=== PATIENT | male | born 1965 | race Caucasian/White ===

== ENCOUNTER 2023-07-07 15:47 | Emergency (ER) | payer MEDICARE, OTHER ==
[~2023-07-07] VITALS: Ht 177.8 cm; Wt 100.0 kg
[2023-07-07] MEDS ORDERED: METHADONE HCL40 MG PO (15:59)
[2023-07-07] MEDS ORDERED: ALBUTEROL/IPRATROPIUM 3 ML NEB INH ONE (16:00)
[2023-07-07] MEDS ORDERED: FAMOTIDINE 20 MG/ 2 ML VIAL IV ONE (16:00)
[2023-07-07] MEDS ORDERED: SODIUM CHLORIDE 0.9% 1,000 ML IV PRN (16:00)
[2023-07-07] MEDS ORDERED: diphenhydrAMINE HCL 50 MG/ML VIAL IV ONE (16:00)
[2023-07-07] MEDS ORDERED: DEXAMETHASONE SOD PHOS 10 MG/ML VIAL IV ONE (16:00)
[2023-07-07 16:01] LABS: BASOPHILS 0.9 % (0-2); EOSINOPHILS 3.1 % (0-6); HEMATOCRIT 42.3 % (35.0-50.0); LYMPHOCYTES 32.2 % (24-44); MCH 29.8 (27-36); MCHC 33.2 g/dl (30-36); MCV 89.7 fl (81-99); MONOCYTES 9.1 % (0-12); NEUTROPHILS 54.7 % (39-80); PLATELET COUNT 152 K/uL (140-440); RBC 4.71 M/ul (4.3-5.7); RDW 13.6 (10.5-15.0)
[2023-07-07] MEDS ORDERED: NALOXONE HCL 0.4 MG SYR IV ONE (16:15)
[2023-07-07 16:23] LABS: ALBUMIN 3.7 g/dL (3.4-5.0); ALBUMIN/GLOBULIN RATIO 1.12 (1.1-2.4); ANION GAP 5.9 (7-21); BILIRUBIN, TOTAL 0.3 ng/dL (0.2-1.0); BUN/CREATININE RATIO 13.18 (6.0-28.6); CALCIUM 8.4 mg/dL (8.5-10.1); CREATININE, SERUM 0.91 mg/dL (0.70-1.30); POTASSIUM 3.9 mmol/L (3.5-5.1)
[2023-07-07 17:00] LABS: BILIRUBIN, URINE NEGATIVE (negative); BLOOD/HGB, URINE NEGATIVE (Negative); KETONE, URINE NEGATIVE (Negative); LEUK ESTERASE, URINE NEGATIVE (negative); NITRITE, URINE NEGATIVE (negative)
[2023-07-07 17:09] LABS: BACTERIA, URINE NONE SEEN /hpf (negative); CASTS, URINE NONE SEEN \\lpf; COLLECTION TYPE, URINE CLEAN CATCH; CRYSTALS, URINE NONE SEEN (0-1+); EPITHELIAL CELLS, URINE SQUAMOUS 1+ /lpf (0-1+); RED BLOOD CELLS, URINE 0-1 /hpf (0-5); REFLEX CULTURE, URINE No (No); WHITE BLOOD CELLS, URINE 0-1 /HPF (0-5)
[2023-07-07 17:22] LABS: AMPHETAMINES, URINE NEGATIVE (NEGATIVE); BARBITURATES, URINE NEGATIVE (NEGATIVE); BENZODIAZEPINE, URINE NEGATIVE (NEGATIVE); BUPRENORPHINE, URINE NEGATIVE (NEGATIVE); CANNABINOID, URINE POSITIVE (NEGATIVE); COCAINE, URINE NEGATIVE (NEGATIVE); ECSTASY, URINE NEGATIVE (NEGATIVE); FENTANYL, URINE NEGATIVE (NEGATIVE); METHADONE, URINE POSITIVE (NEGATIVE); OXYCODONE, URINE NEGATIVE (NEGATIVE); PHENCYCLIDINE, URINE NEGATIVE (NEGATIVE)
--- OUTSIDE RECORDS SUMMARY | 2023-07-07 17:33 | XMS ---
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 Rick VISIT COUNT (12 MO.) 7 [facility] 6 [facility] 1 ALEISHA Brian TOTAL 14 NOTE: Visits indicate total known visits. ED/UCC VISIT TRACKING (12 MO.) 07/07/2023 15:47 [facility] [place] TYPE: Emergency COMPLAINT: - SHORTNESS OF BREATH 06/15/2023 14:03 [facility] [place] TYPE: Emergency COMPLAINT: - DIFF BREATHING 05/30/2023 14:39 [facility] [place] TYPE: Emergency COMPLAINT: - [facility]STIPATION [facility]28[facility]2023 [facility] COMPLAINT: - GLF POSS NECK INJURY, SOB 04/23/2023 03:40 [facility] [place] [facility] COMPLAINT: - COUGH 04/05/2023 04:05 [facility] [place] [facility] COMPLAINT: - Medical 04/04/2023 14:51 [facility] [place] TYPE: Emergency COMPLAINT: - POST SURG ABD SWELLING PAIN 02/26/2023 14:12 [facility] [place] [facility]: Emergency DIAGNOSES: - Unspecified injury of head, initial encounter - Head and neck injury - Head Injury Without Loc 02/24/2023 19:53 [facility] [place] [facility] Emergency COMPLAINT: - SINUS CONGESTION 02/14/2023 06:45 [facility] [place] TYPE: Emergency DIAGNOSES: - Unilateral inguinal hernia, without obstruction or gangrene, not specified as recurrent - Groin Pain - Med[facility] 11/05/2022 12:14 [facility] [place] TYPE: Emergency DIAGNOSES: - Constipation, unspecified - Constipation - hernia 10/26/2022 19:04 [facility] [place] TYPE: Emergency DIAGNOSES: - Constipation, unspecified - ABD Pain - Constipation - Hernia 08/17/2022 08:39 [facility] [place] TYPE: Emergency DIAGNOSES: - Hypotension - Sent by PCP 08/05/2022 09:42 [facility] [place] TYPE: Emergency DIAGNOSES: - Adverse effect of other opioids, initial encounter - Drug induced constipation - Unilateral inguinal hernia, without obstruction or gangrene, not specified as recurrent - Groin Pain INPATIENT VISIT TRACKING (12 MO.) No inpatient visits to display in this time frame [email or web address]
[2023-07-07 17:34] LABS: OPIATES, URINE NEGATIVE (NEGATIVE)
[2023-07-07] MEDS ORDERED: lisinopriL 20 MG TAB PO ONE (18:30)
[2023-07-07] MEDS ORDERED: hydrALAZINE HCL 20 MG/ML VIAL IV ONE (18:30)
[2023-07-07 20:30] VITALS: BP 186/113
--- NOTE | 2023-07-07 22:11 | EKG ---
[facility] [address] [place] [address] Signed Normal sinus rhythm Nonspecific T wave abnormality Abnormal ECG No previous ECGs available Confirmed by Vicki Morley MD () on 07/07/2023 10:11:00 PM Electronically Signed By: VICKI MORLEY MD 07/07/232210 PATIENT NAME: IAN AMAYA Electrocardiogram DATE OF : 61 PHYSICIAN: VICKI MORLEY MD REPORT #: [id number] REPORT IS CONFIDENTIAL AND NOT TO BE RELEASED WITHOUT AUTHORIZATION
== END 2023-07-07 20:38 | disposition home or self-care (01) ==
LOC: ED 15:47
PROVIDERS: Emergency Medicine
DX: J02.9 Acute pharyngitis, unspecified (principal)
CPT/HCPCS: 36415; 70360; 71045; 80053; 80307; 81001; 84484; 85025; 85379; 93005; 93010; 94640; 96374; 99285-25; J0360; J1100; J1200

== ENCOUNTER 2024-12-29 06:50 | Day surgery (SDC) | payer MEDICARE, OTHER ==
[~2024-12-29] VITALS: Ht 175.3 cm; Wt 95.0 kg
[~2024-12-29 06:50] MED LIST: ACID CONTROLLER20 MG PO; ALBUTEROL1.25 MG/3 INH; ALDACTONE100 MG PO; CYCLOBENZAPRINE10 MG PO; FLONASE ALLERG9.9 ML NAS; LACTATED RINGER'S 1,000 ML IV SCH; LASIX20 MG PO; LISINOPRIL20 MG PO; METHADONE HCL40 MG PO; MILK OF MA400 MG/5 M PO; OMEPRAZOLE20 MG PO; PREGABALIN150 MG PO; SENNA8.6 MG PO; TAMSULOSIN HCL0.4 MG PO; TRELEGY ELLIPT1 EACH INH; TYLENOL EXTRA500 MG PO; VENTOLIN HFA18 GM INH; ZITHROMAX250 MG PO
[2024-12-29] MEDS ORDERED: LIDOCAINE HCL 1% 5 ML SDV INJ ONE (07:00)
[2024-12-29] MEDS ORDERED: IBLOOD GLUCOSE TEST STRIP 1 EA TEST VI PRN ×2 (07:00→10:15)
[2024-12-29] MEDS ORDERED: CEFAZOLIN SODIUM 2 GM in SODIUM CHLORIDE 0.9% 100 ML IV SCH (07:00)
[2024-12-29 07:21] VITALS: BP 141/92
[2024-12-29] MEDS ORDERED: BUPIVACAINE 0.75% IN DEXTROSE 2 ML AMP ONE (09:01)
[2024-12-29] MEDS ORDERED: fentaNYL citrate 100 MCG/2 ML VIAL ONE (09:02)
[2024-12-29] MEDS ORDERED: fentaNYL citrate 50 MCG/ML SDV IV PRN (10:15)
[2024-12-29] MEDS ORDERED: NALOXONE HCL 0.4 MG SYR IV PRN ×2 (10:15→16:30)
--- NOTE | 2024-12-29 10:31 | NUR ---
12/29/24 1031 Abi Knight LE 1018: PT ARRIVES TO PACU DROWSY, BUT REACTIVE. REPORT RECEVED FROM COW TENDER AND EARTH SCIENCE TEACHER. ORAL AIRWAY IS REMOVED AT 1019 AND NASAL AIRWAY IS REMOVED AT 1020. LE 1025: PT KEEPS PULLING HIS OXYGEN MASK OFF, ACTING BLOW BY. PT IS ASKING FOR WATER, BUT HE IS UNABLE TO KEEP HIS EYES OPEN.
[2024-12-29 10:54] VITALS: BP 137/94
--- NOTE | 2024-12-29 11:03 | NUR ---
HAVEN 1053-PT BACK TO ROOM FROM PACU ON 2L VIA MA. RECEIVED REPORT FROM ZANA CANO. PT IS AWAKE. RESP EVEN AND UNLABORED. DENIES PAIN AND NAUSEA, PT IS DRINKING WATER. PROVIDED PT WITH COFFEE AND PUDDING. NO OTHER NEEDS AT THIS TIME. CALL LIGHT WITHIN REACH.
[2024-12-29 11:55] VITALS: BP 124/78
--- NOTE | 2024-12-29 12:13 | NUR ---
1155-PT LAYING IN BED AWAKE. RESP EVEN AND UNLABORED. RATES PAIN A /10. STATES "IT FEELS LIKE EVERYTHING IS WAKING UP". PT DRINKING COFFEE AND EATING PUDDING. NO OTHER NEEDS AT THIS TIME. CALL LIGHT WITHIN REACH. 1200-VO PER DR ULLOA THAT PT CAN TAKE HOME MEDS THAT HE BROUGHT. 1205-LUNCH DELIVERED.
[2024-12-29 12:55] VITALS: BP 108/65
[2024-12-29] MEDS ORDERED: HYDROCODONE/ACETA 7.5/325 TAB PO ONE (13:15)
[2024-12-29 13:53] VITALS: BP 117/75
--- NOTE | 2024-12-29 14:41 | NUR ---
LE 1255-PT LAYING IN BED. RESP EVEN AND UNLABORED. RATES PAIN 5/10 AND WOULD LIKE PAIN MEDICATION. PT DRINKING WATER. PT STATES STILL CANT FEEL THE BOTTOM OF HIS FEET. PT DOESN'T HAVE THE URGE TO VOID AT THIS TIME. CALL LIGHT WITHIN REACH. 1301-VO PER DR ULLOA FOR [place] 7.5/325 1-2 NOW.
--- NOTE | 2024-12-29 14:46 | NUR ---
LE 1353-PT LAYING IN BED ON HIS PHONE. RESP EVEN AND UNLABORED. PT RATES PAIN 4/10. STATES HE CAN FEEL HIS FEET. LE 1400-900+ML WITH BLADDER SCAN. LE 1405-PT STANDS UP TO USE RESTROOM AND STARTS TO VOID. PT IS UNABLE TO TELL THAT HS IS VOIDING. LE 1408-VO PER DR ULLOA TO PLACE A ROB CATH. LE 1420-ROB CATH PLACED USING STERILE TECHNIQUE. PT UNABLE TO FEEL ANY SENSATION WHEN CATH WAS PLACED. 1100ML OF URINE DRAINED FROM THE BLADDER. ONCE BLADDER DRAINED PT STATE HE CAN TELL "A LITTLE BIT OF RELIEF".
--- NOTE | 2024-12-29 14:46 | NUR ---
LE 1319-PAIN MEDICATION GIVEN PER EMAR.
--- NOTE | 2024-12-29 16:21 | NUR ---
LE 1530-PT STATES HE STILL HAS NO FEEL IN THE GROIN AREA. ROB CATH IN PLACE AND DRAINING PALE YELLOW URINE. UPDATE GIVEN TO DR. ULLOA.
--- NOTE | 2024-12-29 16:22 | NUR ---
LE 1610-PT STATES STILL NUMB FEELING IN THE GROIN AREA. DR ULLOA IN TO TALK WITH PT. PT WILL GO TO MED SURG FOR THE NIGHT. DR ULLOA WILL PUT IN NEW ORDERS.
[2024-12-29] MEDS ORDERED: OXYCODONE/APAP 5/325 TAB PO PRN (16:30)
[2024-12-29] MEDS ORDERED: HYDROmorphone HCL 1 MG/ML SYR IV PRN (16:30)
[2024-12-29 16:49] VITALS: BP 127/90
--- NOTE | 2024-12-29 17:08 | NUR ---
1700-PT STATES THAT HE CAN FEEL HIS GROIN AREA AND ASKING FOR THE CATH TO BE REMOVED. 10ML OF STERILE WATER REMOVED FROM CATH BALLOON AND CATH REMOVED WITHOUT DIFFICULTY. LE 1709-PT RATES PAIN AN 8/10. PAIN MEDICATION GIVEN PER EMAR.
--- NOTE | 2024-12-29 17:23 | NUR ---
1720-PT UP TO RESTROOM. PT STATES HE HAS THE URGE TO VOID. 1725-PT VOIDS 100ML. PHONE CALL TO DR ULLOA WITH UPDATE. PT CAN BE DISCHARGED.
--- NOTE | 2024-12-29 17:55 | NUR ---
1730-PT GETTING DRESSED. 1740-WENT OVER DISCHARGE INSRUCTIONS WITH PT. WENT OVER POSTOP MEDICATIONS. ALL QUESTIONS ANSWERED. 1745-PT AMBULATES TO WHEELCHAIR AND RIDE PROVIDED TO FRONT OF HOSPITAL WHERE MEDICAL TRANSPORT WAS WAITING FOR HIM.
[2024-12-30] MEDS ORDERED: METHADONE HCL 10 MG TAB PO SCH (08:00)
--- NOTE | 2024-12-30 11:05 | OR ---
[facility] [address] [place], [place] [address] Signed DATE OF OPERATION: 12/29/2024 SURGEON: Guillermo Ulloa DO POSTOPERATIVE DIAGNOSIS: Left inguinal hernia. POSTOPERATIVE DIAGNOSIS: Left inguinal hernia with left direct inguinal hernia. PROCEDURE PERFORMED: Repair of the left inguinal hernia with mesh. ANESTHESIA: Spinal. ESTIMATED BLOOD LOSS: Minimal. DRAINS: None. COMPLICATIONS: None. DESCRIPTION OF PROCEDURE: The patient was brought to the operating room and placed in the supine position. After induction of IV sedation and spinal anesthesia, the abdomen was then sterilely shaved, prepped, and draped in usual fashion. The inguinal canal was then marked with a marker and utilizing a linear incision over the inguinal canal, skin was incised with a scalpel. Dissection continued down through the layers of the subcutaneous tissue. The subcutaneous tissues were thoroughly mobilized, exposing the external oblique aponeurosis. It was opened sharply and external ring was opened revealing the cord and cord structures. Cord structures were then skeletonized. Cord lipoma was removed. No indirect component was noted. The cord structures were then encircled with a [place] drain, brought out of the field. The shelving edge of the ilioinguinal ligament and musculature medial was then identified and utilizing interrupted 0 Ethibond repair was then carried out from the apex of the inguinal canal to the level of the entrance of the cord. A piece of onlay mesh was then fashioned and secured with interrupted 0 Vicryl in the inguinal canal from the apex to the medial aspect, and along Electronically Signed By: GUILLERMO ULLOA DO 12/30/24 1105 PATIENT NAME: IAN AMAYA OPERATIVE REPORT DATE OF : 61 REPORT #: [id number] PHYSICIAN: GUILLERMO ULLOA DO PCP: NO PRIMARY CARE PHYSICIAN REPORT IS CONFIDENTIAL AND NOT TO BE RELEASED WITHOUT AUTHORIZATION [facility] [address] [place], [place] [address] Signed the ilioinguinal ligament to above the cord and cord structures. The entire region was then copiously irrigated and dried. No active bleeding sites were apparent. Cord was placed back in its anatomic position. The testicle was reduced. The external oblique aponeurosis was then closed with a running stitch of 2-0 Vicryl. The subcutaneous incision was then thoroughly irrigated and dried. No active bleeding sites were apparent. The subcutaneous tissue was then closed with interrupted 3-0 Vicryl subcuticular fashion. Skin was closed with joann. Sterile dressing was applied. The patient tolerated the procedure well and went to recovery room in satisfactory condition. Guillermo Ulloa DO RS/MODL /[id number] Copies: ~ Electronically Signed By: GUILLERMO ULLOA DO 12/30/24 1105 PATIENT NAME: IAN AMAYA OPERATIVE REPORT DATE OF : 61 REPORT #: [id number] PHYSICIAN: GUILLERMO ULLOA DO PCP: NO PRIMARY CARE PHYSICIAN REPORT IS CONFIDENTIAL AND NOT TO BE RELEASED WITHOUT AUTHORIZATION
== END 2024-12-29 17:45 | disposition home or self-care (01) ==
LOC: DS 06:50
PROVIDERS: ATTEND Surgery
PROC: 0YU60JZ Supplement Left Inguinal Region with Synthetic Substitute, Open Approach (ICD-10-PCS; principal; 2024-12-29 08:10)
DX: K40.90 Unilateral inguinal hernia, without obstruction or gangrene, not specified as recurrent (principal); I50.9 Heart failure, unspecified; J43.9 Emphysema, unspecified; M81.0 Age-related osteoporosis without current pathological fracture; G25.81 Restless legs syndrome; Z79.899 Other long term (current) drug therapy; Z88.5 Allergy status to narcotic agent
CPT/HCPCS: 00830; A9270; C1781; J0688; J2704; J3010; J7121

== ENCOUNTER 2025-01-01 13:59 | Emergency (ER) | payer MEDICARE, OTHER ==
[~2025-01-01] VITALS: Ht 175.3 cm; Wt 96.1 kg
--- OUTSIDE RECORDS SUMMARY | ~2025-01-01 | XMS | Continuity of Care Document ---
Demographics + + + | Address | [address] | | | [place] [address] | + + + | Preferred Language | Unknown | + + + | Marital Status | Never | + + + | Yazdanism Affiliation | Unknown | + + + | Race | White | + + + | Ethnic Group | Not or | + + + Author + + + | Author | [facility] | + + + | Organization | [facility] | + + + | Address | [address] | | | [place] [address] | + + + | Phone | | + + + Care Team Providers + + + + | Care V Belt Skiver Name | Role | Phone | + + + + Unavailable | Unavailable | + + + + Unavailable | Unavailable | + + + + Allergies and Intolerances + + + + + + | date | description | facility | reaction | severity | + + + + + + | 2024-12-29 | Codeine | [facility] - | (no reaction) | Severe | | 00:00 | | [facility] | | | + + + + + + | 2024-12-29 | Codeine | [facility] - | (no reaction) | Severe | | 00:00 | | [facility] | | | + + + + + + | 2024-12-29 | Codeine | [facility] - | (no reaction) | Severe | | 00:00 | | [facility] | | | + + + + + + Encounters No information. Functional Status No information. Immunizations No information. Medications + + + + | date | description | facility | + + + + | (no date) | FLUTICASONE PROPIONATE | [facility] | | | | [facility] | + + + + | (no date) | | [facility] | | | Fluticasone/Umeclidin/Vilan | [facility] | | | ter | | + + + + | (no date) | OMEPRAZOLE | [facility] | | | | [facility] | + + + + | (no date) | ACETAMINOPHEN | [facility] | | | | [facility] | + + + + | (no date) | FUROSEMIDE | [facility] | | | | [facility] | + + + + | (no date) | SPIRONOLACTONE | [facility] | | | | [facility] | + + + + | (no date) | AZITHROMYCIN | [facility] | | | | [facility] | + + + + | (no date) | MAGNESIUM HYDROXIDE | [facility] | | | | [facility] | + + + + | (no date) | FAMOTIDINE | [facility] | | | | [facility] | + + + + | (no date) | SENNOSIDES | [facility] | | | | [facility] | + + + + | (no date) | LISINOPRIL | [facility] | | | | [facility] | + + + + | (no date) | ALBUTEROL SULFATE | [facility] | | | | [facility] | + + + + | (no date) | Pregabalin | [facility] | | | | [facility] | + + + + | (no date) | CYCLOBENZAPRINE HCL | [facility] | | | | [facility] | + + + + | (no date) | ALBUTEROL SULFATE | [facility] | | | | [facility] | + + + + | (no date) | TAMSULOSIN HCL | [facility] | | | | [facility] | + + + + | (no date) | METHADONE HCL | [facility] | | | | [facility] | + + + + Problems No information. Procedures + + + + | date | description | facility | + + + + | 2024-12-29 00:00 | Repair of left inguinal | [facility] | | | hernia with mesh | [facility] | + + + + Results/Labs +--------+--------+ +---------+--------+---------+ | test | date | facility | value | unit | notes | +--------+--------+ +---------+--------+---------+ + + | Result panel 1 | + + + + + +--------+ + + | WBC # Bld | 2024-12-24 | | 6.85 | (missing) | (missing) | | Auto | 16:09:07 | [facility] | | | | | | [facility] | | | | + + + +--------+ + + + + | Result panel 2 | + + + + + +--------+ + + | Lymphocytes | 2024-12-24 | | 27.9 | (missing) | (missing) | | NFr Bld | 16:09:07 | [facility] | | | | | Auto [facility] | | | | + + + +--------+ + + + + | Result panel 3 | + + + + + +-------+ + + | Monocytes | 2024-12-24 | | 9.9 | (missing) | (missing) | | NFr Bld Auto | 16:09:07 | [facility] | | | | + + + +-------+ + + + + | Result panel 4 | + + + + + +-------+ + + | Eosinophil | 2024-12-24 | | 2.0 | (missing) | (missing) | | NFr Bld Auto | 16:09:07 | [facility] | | | | + + + +-------+ + + + + | Result panel 5 | + + + + + +-------+ + + | Basophils | 2024-12-24 | | 0.6 | (missing) | (missing) | | NFr Bld Auto | 16:09:07 | [facility] | | | | + + + +-------+ + + + + | Result panel 6 | + + + + + +-------+---------+ + | Glucose | 2024-12-24 | | 100 | mg/dL | (missing) | | Elma | 16:09:07 | [facility] | | | | + + + +-------+---------+ + + + | Result panel 7 | + + + + + +------+---------+ + | BUN | 2024-12-24 | | 15 | mg/dL | (missing) | | SerPl-Klaus | 16:09:07 | [facility] | | | | + + + +------+---------+ + + + | Result panel 8 | + + + + + +--------+---------+ + | Creat | 2024-12-24 | | 1.06 | mg/dL | (missing) | | SerPl-mCnc | 16:09:07 | [facility] | | | | + + + +--------+---------+ + + + | Result panel 9 | + + + + + +------+ + + | eGFRcr | 2024-12-24 | | 80 | (missing) | (missing) | | SerPlBld | 16:09:07 | [facility] | | | | | CKD-EPI 2020 | | - | | | | | | | [facility] | | | | + + + +------+ + + + + | Result panel 10 | + + + + + +---------+ + + | BUN/Creat | 2024-12-24 | | 14.15 | (missing) | (missing) | | SerPl | 16:09:07 | [facility] | | | | | | | - | | | | | | | [facility] | | | | + + + +---------+ + + + + | Result panel 11 | + + + + + +-------+ + + | Sodium | 2024-12-24 | | 138 | (missing) | (missing) | | SerPl-sCnc | 16:09:07 | [facility] | | | | + + + +-------+ + + + + | Result panel 12 | + + + + + +--------+ + + | RBC # Bld | 2024-12-24 | | 4.33 | (missing) | (missing) | | Auto | 16:09:07 | [facility] | | | | + + + +--------+ + + + + | Result panel 13 | + + + + + +-------+ + + | Potassium | 2024-12-24 | | 4.7 | (missing) | (missing) | | SerPl-sCnc | 16:09:07 | [facility] | | | | + + + +-------+ + + + + | Result panel 14 | + + + + + +------+ + + | Chloride | 2024-12-24 | | 96 | (missing) | (missing) | | SerPl-sCnc | 16:09:07 | [facility] | | | | + + + +------+ + + + + | Result panel 15 | + + + + + +------+ + + | CO2 | 2024-12-24 | | 37 | (missing) | (missing) | | SerPl-sCn | 16:09:07 | [facility] | | | | + + + +------+ + + + + | Result panel 16 | + + + + + +-------+ + + | Anion Gap | 2024-12-24 | | 9.7 | (missing) | (missing) | | SerPl | 16:09:07 | [facility] | | | | | Calculated.4 | [facility] | [facility] | | | | + + + +-------+ + + + + | Result panel 17 | + + + + + +-------+---------+ + | Calcium | 2024-12-24 | | 9.1 | mg/dL | (missing) | | [facility] | 16:09:07 | [facility] | [facility] | | | | + + + +-------+---------+ + + + | Result panel 18 | + + + + + +-------+ + + | Prot | 2024-12-24 | | 7.3 | (missing) | (missing) | | SerPl-mCnc | 16:09:07 | [facility] | | | | + + + +-------+ + + + + | Result panel 19 | + + + + + +-------+ + + | Albumin | 2024-12-24 | | 4.2 | (missing) | (missing) | | SerPl-mCnc | 16:09:07 | [facility] | | | | + + + +-------+ + + + + | Result panel 20 | + + + + + +-------+ + + | Globulin | 2024-12-24 | | 3.1 | (missing) | (missing) | | Ser-Klaus | 16:09:07 | [facility] | | | | + + + +-------+ + + + + | Result panel 21 | + + + + + +--------+ + + | | 2024-12-24 | | 1.35 | (missing) | (missing) | | Albumin/Glob | 16:09:07 | [facility] | | | | | SerPl | [facility] | | | | + + + +--------+ + + + + | Result panel 22 | + + + + + +-------+---------+ + | Bilirub | 2024-12-24 | | 0.4 | mg/dL | (missing) | | SerPl-mCnc | 16::07 | [facility] | | | | + + + +-------+---------+ + + + | Result panel 23 | + + + + + +--------+ + + | Hgb | 2024-12-24 | | 13.0 | (missing) | (missing) | | Bld-mCnc | 16:09:07 | [facility] | | | | + + + +--------+ + + + + | Result panel 24 | + + + + + +------+ + + | AST | 2024-12-24 | | 15 | (missing) | (missing) | | Sahil-Trixie | 16:09:07 | [facility] | | | | + + + +------+ + + + + | Result panel 25 | + + + + + +------+ + + | ALT | 2024-12-24 | | 25 | (missing) | (missing) | | SerPl-cCn | 16:09:07 | [facility] | | | | + + + +------+ + + + + | Result panel 26 | + + + + + +------+ + + | ALP | 2024-12-24 | | 64 | (missing) | (missing) | | Ser[facility] | 16:09:07 | [facility] | | | | + + + +------+ + + + + | Result panel 27 | + + + + + +--------+ + + | Hct VFr.DF | 2024-12-24 | | 39.5 | (missing) | (missing) | | Bld Auto | 16:09:07 | [facility] | | | | | | | - | | | | | | | [facility] | | | | + + + +--------+ + + + + | Result panel 28 | + + + + + +--------+ + + | RBC Auto | 2024-12-24 | | 91.2 | (missing) | (missing) | | | 16:09:07 | [facility] | | | | | | | - | | | | | | | [facility] | | | | + + + +--------+ + + + + | Result panel 29 | + + + + + +--------+ + + | MCH RBC Qn | 2024-12-24 | | 30.0 | (missing) | (missing) | | Auto | 16:09:07 | [facility] | | | | + + + +--------+ + + + + | Result panel 30 | + + + + + +--------+ + + | MCHC RBC | 2024-12-24 | | 32.9 | (missing) | (missing) | | Auto-EntMCnc | 16:09:07 | [facility] | | | | + + + +--------+ + + + + | Result panel 31 | + + + + + +-------+ + + | Platelet # | 2024-12-24 | | 164 | (missing) | (missing) | | Bld Auto | :: | [facility] | | | | + + + +-------+ + + + + | Result panel 32 | + + + + + +--------+ + + | Neutrophils | 2024-12-24 | | 59.3 | (missing) | (missing) | | NFr Bld | 16:09:07 | [facility] | | | | | [facility] | [facility] | | | | + + + +--------+ + + Social History + + + + | date | description | facility | + + + + | (no date) | Unknown if ever smoked | [facility] | | | | [facility] | + + + + Vital Signs + + + +---------+ | date | measurement | value | units | + + + +---------+ | 2024-12-24 00:00 | BMI | 30.9 | kg/m2 | + + + +---------+ | 2024-12-24 00:00 | height_metric | 175.26 | cm | + + + +---------+ | 2024-12-24 00:00 | height_standard | 69 | in | + + + +---------+ | 2024-12-24 00:00 | weight_metric | 94.999 | kg | + + + +---------+ | 2024-12-24 00:00 | weight_standard | 209.437 | lb | + + + +---------+ | 2024-12-29 00:00 | BP_diastolic | 90 | mmHg | + + + +---------+ | 2024-12-29 00:00 | BP_systolic | 127 | mmHg | + + + +---------+ | 2024-12-29 00:00 | heart_rate | 75 | /min | + + + +---------+ | 2024-12-29 00:00 | o2_saturation | 96 | % | + + + +---------+ | 2024-12-29 00:00 | respiration_rate | 16 | /min | + + + +---------+ | 2024-12-29 00:00 | | 97.7 | F | | | temperature_standar | | | | | d | | | + + + +---------+"
[~2025-01-01 13:59] MED LIST changes: -LACTATED RINGER'S 1,000 ML IV SCH
--- OUTSIDE RECORDS SUMMARY | 2025-01-01 14:06 | XMS ---
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 No recent Security Events currently on file CRITERIA MET - 6 ED Visits in 6 Months CARE PROVIDERS Maria Isabel HARRIS, Family Medicine 11/12/2017-[facility] PHONE: [phone] [facility] Internal Medicine 09/16/2017-[facility] PHONE: [phone] -, [facility] Dentist: Qi Specialist [facility] PHONE: [phone] [facility]: [facility] ([facility]) PHONE: [phone] LUCAS HAQUE [facility]: [facility] Current [place] PHONE: Unknown KYA JJ Physician Director Cardiovascular Current PHONE: [phone] Georgi SAEED Cassandra Consultant/Wildlife Conservation Professor Current PHONE: [phone] Maryellen has no Care Guidelines for this patient. ELaina VISIT COUNT (12 MO.) 8 [facility] 1 [facility] [place] TOTAL 9 NOTE: Visits indicate total known visits. ED/UCC VISIT TRACKING (12 MO.) 01/01/2025 13:59 [facility] [place] TYPE: Emergency COMPLAINT: - CONSTIPATION 11/26/2024 10:51 [facility] Jayashree MUKHERJEE ([place]) TYPE: Emergency DIAGNOSES: - Radiculopathy, cervical region - Strain of muscle, fascia and tendon at neck level, initial encounter - Facial Pain 10[facility]2024 [facility] TYPE: Emergency DIAGNOSES: - Unilateral inguinal hernia, without obstruction or gangrene, not specified as recurrent - Abdominal Pain - Flank Pain - SOB, abd pain 09/26/2024 15:19 [facility] Deng [place]ch[place] YAZ ([place]eng [place]) TYPE: Emergency DIAGNOSES: - Hypotension, unspecified - EMS - Hypotension 08/14/2024 17:17 [facility] Deng Vilchis YAZ ([place]) TYPE: Emergency DIAGNOSES: - Acute kidney failure, unspecified - Chronic obstructive pulmonary disease with (acute) exacerbation - Shortness of Breath 08/13/2024 08:20 [facility] [place] (Deng Vilchis) TYPE: Emergency DIAGNOSES: - Pneumonia, unspecified organism - Shortness of Breath 08/07/2024 15:01 [facility] Deng MUKHERJEE ([place]) TYPE: Emergency DIAGNOSES: - Chest pain, unspecified - Chest Pain - Shortness of Breath 01/22/2024 12:21 [facility] Deng MUKHERJEE ([place]) TYPE: Emergency DIAGNOSES: - Other chest pain - Other muscle spasm - Chest Pain - ems 01/08/2024 18:11 [facility] Deng MUKHERJEE ([place]) TYPE: Emergency DIAGNOSES: - Other forms of dyspnea - Shortness of Breath INPATIENT VISIT TRACKING (12 MO.) 08/14/2024 17:17 [facility] TYPE: Medical Surgical DIAGNOSES: - Acute and chronic respiratory failure with hypercapnia - Acute and chronic respiratory failure with hypoxia - Acute kidney failure, unspecified - Chronic obstructive pulmonary disease with (acute) exacerbation - Other specified dorsopathies, lumbosacral region - Spinal stenosis, lumbar region without neurogenic claudication [email or web address]
[2025-01-01] MEDS ORDERED: MAGNESIUM CITRATE 300 ML BTL PO ONE (15:45)
[2025-01-01 15:56] VITALS: BP 122/84
== END 2025-01-01 15:55 | disposition home or self-care (01) ==
LOC: ED 13:59
DX: K59.00 Constipation, unspecified (principal); R10.9 Unspecified abdominal pain
CPT/HCPCS: 99283